=== PATIENT | female | born 1970 | race Caucasian/White ===

== ENCOUNTER → 2024-01-19 09:01 | Outpatient (REF) | payer BC, SELFPAY | LOC: HWWDC 09:01 | PROVIDERS: ATTENDING PHYSICIAN Internal Medicine; FAMILY PHYSICIAN Physician Assistant Medical | DX: Z12.31 Encounter for screening mammogram for malignant neoplasm of breast (principal); R92.2 Inconclusive mammogram | CPT/HCPCS: 77063; 77067 ==

== ENCOUNTER → 2024-03-22 07:48 | Outpatient (REF) | payer BC, SELFPAY | LOC: WDC 07:48 | PROVIDERS: ATTENDING PHYSICIAN Internal Medicine; FAMILY PHYSICIAN Physician Assistant Medical | DX: R92.2 Inconclusive mammogram (principal) | CPT/HCPCS: 76641 ==

== ENCOUNTER → 2025-03-31 14:38 | Outpatient (REF) | payer BC, SELFPAY | LOC: WDC 14:38 | PROVIDERS: ATTENDING PHYSICIAN Physician Assistant Medical | DX: Z12.31 Encounter for screening mammogram for malignant neoplasm of breast (principal) | CPT/HCPCS: 77063; 77067 ==

== ENCOUNTER → 2025-07-21 09:03 | Outpatient (REF) | payer BC, SELFPAY | LOC: WDC 09:03 | PROVIDERS: ATTENDING PHYSICIAN Physician Assistant Medical | DX: R92.2 Inconclusive mammogram (principal); R92.333 Mammographic heterogeneous density, bilateral breasts | CPT/HCPCS: 76641 ==